=== PATIENT | female | born 1990 | race Caucasian/White ===

== ENCOUNTER → 2021-04-27 | Outpatient (CLI) | payer OTHER ==
[~2021-04-27] MED LIST: ACYC800 PO; AMOX500 PO; AMOX50SU PO; BIRTH CONTROL PILL; CIPR500 PO; CLON2 PO; CODGUAEL PO; ESCI10; HYDACE5 PO; ONDA4 PO; PENVK500 PO; PROM25 PO; RXCODACESY PO; RXONDA4ODT MM; SERT50; TOPAMAX 200 MG; TRAM50 PO; [UNRECOGNIZED DRUG - REMARK]; [UNRECOGNIZED DRUG - REMARK] PO; [UNRECOGNIZED DRUG - REMARK] PO
[2021-04-30 11:10] LABS: HPV 16 Negative (Negative); HPV 18 Negative (Negative); HPV OTHER HR TYPES Positive (Negative)
== END ==
LOC: LAB SHORT 15:20 → LAB 15:20
PROVIDERS: Registered Nurse Community Health
DX: Z12.4 Encounter for screening for malignant neoplasm of cervix (principal)
CPT/HCPCS: 87624; G0123

== ENCOUNTER → 2021-05-31 | Outpatient (CLI) | payer OTHER | LOC: LAB 13:24 → LAB SHORT 13:24 | DX: N87.9 Dysplasia of cervix uteri, unspecified (principal) | CPT/HCPCS: 88305; 88342 ==

== ENCOUNTER 2021-06-23 08:15 | Day surgery (SDC) | payer OTHER ==
[~2021-06-23] VITALS: Ht 167.6 cm; Wt 67.0 kg
== END 2021-06-23 11:50 | disposition home or self-care (01) ==
LOC: ORSCSDS 08:15
PROVIDERS: Obstetrics & Gynecology
PROC: 0UBC7ZX Excision of Cervix, Via Natural or Artificial Opening, Diagnostic (ICD-10-PCS; principal; 2021-06-23 10:00)
DX: D06.0 Carcinoma in situ of endocervix (principal); F17.210 Nicotine dependence, cigarettes, uncomplicated; F32.9 Major depressive disorder, single episode, unspecified
CPT/HCPCS: 88305; J0171; J1100; J1885; J2405; J2704; J3010; J7120

== ENCOUNTER → 2021-09-13 | Outpatient (CLI) | payer OTHER ==
[2021-09-13 10:31] LABS: BASOPHILS ABSOLUTE AUTO 0.04 K/mm3 (0.00-0.23); BASOPHILS PERCENT AUTO 0 % (0-2); EOSINOPHILS ABSOLUTE AUTO 0.06 K/mm3 (0.00-0.68); EOSINOPHILS PERCENT AUTO 1 % (0-6); Hematocrit 42.8 % (33.0-51.0); Hemoglobin 14.7 g/dL (11.5-16.0); IMMATURE GRAN ABSOLUTE AUTO 0.05 K/mm3 (0.00-0.10); IMMATURE GRAN PERCENT AUTO 0 % (0-1); LYMPHOCYTES ABSOLUTE AUTO 2.16 K/mm3 (0.84-5.20); LYMPHOCYTES PERCENT AUTO 19 % (21-46); MONOCYTES ABSOLUTE AUTO 0.57 K/mm3 (0.16-1.47); MONOCYTES PERCENT AUTO 5 % (4-13); Mean Corpuscular HGB 30.4 pg (26.0-34.0); Mean Corpuscular HGB Conc 34.3 g/dL (31.5-36.5); Mean Corpuscular Volume 89 fL (80-100); NEUTROPHILS ABSOLUTE AUTO 8.41 K/mm3 (1.96-9.15); NEUTROPHILS PERCENT AUTO 75 % (41-73); Platelet Count 262 K/mm3 (150-400); RDW Coefficient Variation 12.4 % (11.7-14.2); RDW Standard Deviation 40.2 fL (35.1-46.3); Red Blood Cell Count 4.83 M/mm3 (3.80-5.20); White Blood Cell Count 11.29 K/mm3 (4.00-11.30)
[2021-09-13 10:49] LABS: Alanine Aminotransfer (ALT/SGP 37 U/L (12-78); Albumin, Blood 4.2 g/dL (3.4-5.0); Albumin/Globulin Ratio 1.1 (0.8-1.8); Alk Phos 84 U/L (40-126); Anion Gap 10 mmol/L (6-16); Aspartate Aminotrans (AST/SGOT 26 U/L (12-37); Blood Urea Nitrogen 8 mg/dL (8-24); Bun/Creatinine Ratio 10.1 (12.0-20.0); CO2, Blood 26 mmol/L (21-32); Calcium, Blood 8.7 mg/dL (8.5-10.1); Chloride, Blood 100 mmol/L (98-108); Creatinine, Blood 0.79 mg/dL (0.40-1.00); Free Thyroxine 1.23 ng/dL (0.70-1.60); Globulin, Blood 3.7 g/dL (2.2-4.0); Glomerular Filtration Rate >60 (60-); Glucose, Blood 79 mg/dL (70-99); Potassium, Blood 4.4 mmol/L (3.5-5.5); Sodium, Blood 136 mmol/L (136-145); Thyroid Stimulating Hormone 0.911 uIU/mL (0.360-4.800); Total Protein, Blood 7.9 g/dL (6.4-8.2)
== END | disposition home or self-care (01) ==
LOC: LAB SHORT 10:26 → LAB 10:26
PROVIDERS: Family Medicine
DX: E04.9 Nontoxic goiter, unspecified (principal); N20.9 Urinary calculus, unspecified
CPT/HCPCS: 80053; 84439; 84443; 85025; 87086

== ENCOUNTER → 2021-11-10 | Outpatient (CLI) | payer OTHER | LOC: LAB SHORT 18:58 | DX: B37.2 Candidiasis of skin and nail (principal); R63.1 Polydipsia; Z83.3 Family history of diabetes mellitus | CPT/HCPCS: 83036 ==

== ENCOUNTER → 2024-09-05 | Outpatient (CLI) | payer OTHER ==
[~2024-09-05] MED LIST changes: +ACET325; +DOCU100 PO; +IBUP200
[2024-09-06 07:42] LABS: Candida Group, PCR NOT DETECTED (NOT DETECT); Candida glabrata-krusei, PCR NOT DETECTED (NOT DETECT)
[2024-09-06 07:56] LABS: Bacterial Vaginosis PCR Positive (NEGATIVE)
== END ==
LOC: LAB 18:03 → LAB SHORT 18:03
PROVIDERS: Obstetrics & Gynecology
DX: N89.8 Other specified noninflammatory disorders of vagina (principal)
CPT/HCPCS: 87481; 87661; 87801

== ENCOUNTER 2024-11-08 06:07 | Day surgery (SDC) | payer OTHER ==
[2024-11-08] VITALS (10 sets, daily range): BP systolic 116–147; BP diastolic 80–88
[~2024-11-08] VITALS: Ht 167.6 cm; Wt 80.9 kg
[~2024-11-08 06:07] MED LIST changes: +Cyclobenzaprine5 MG PO; +NIFEDIPINE; +Venlafaxine HC150 MG PO
[2024-11-08] MEDS ORDERED: Lactated Ringer's 1,000 ML IV SCH (06:20)
[2024-11-08] MEDS ORDERED: Ampicillin Sod/Sulbactam Sod 3 GM in NS 100 ML IV SCH (06:20)
--- NOTE | 2024-11-08 06:41 | NUR ---
AMBULATORY INTO [facility]. HISTORY AND ALLERGIES REVIEWED. LUNGS CLEAR. NPO STATUS CONFIRMED. PT MOTHER GAYE IS HER RIDE HOME TODAY.BELONGINGS GIVEN TO PT MOM.
[2024-11-08] MEDS ORDERED: propofoL 20 ML IV ONE (06:51)
[2024-11-08] MEDS ORDERED: Ampicillin Sod/Sulbactam Sod 3 GM ONE (06:52)
[2024-11-08] MEDS ORDERED: Bupivacaine 0.5% HCl 5 MG/ML 30MLVIAL ONE (07:17)
[2024-11-08] MEDS ORDERED: Midazolam HCl 1MG / ML 2ML Vial IV ONE (07:25)
[2024-11-08] MEDS ORDERED: FentaNYL Citrate 50 MCG/ML 2 ML Injection ONE ×2 (07:32→08:00)
[2024-11-08] MEDS ORDERED: Ketorolac Tromethamine 30mg Vial ONE (07:46)
[2024-11-08] MEDS ORDERED: Ondansetron HCl 2 MG / ML 2ML Vial ONE (07:46)
[2024-11-08] MEDS ORDERED: Dexamethasone Sod Phos 10 MG/ML 1ML VIAL ONE (07:46)
[2024-11-08] MEDS ORDERED: Lidocaine 1%-Epineph 1:100000 20 ML MDV INJ ONE (07:55)
[2024-11-08] MEDS ORDERED: Triple Antibiotic Ointment 30 gm ONE (08:02)
[2024-11-08] MEDS ORDERED: OxyCODONE 5 mg/Acetamin 325 mg TABLET PO PRN (08:35)
--- NOTE | 2024-11-08 09:56 | NUR ---
Patient up to Ambulate independently. Gait steady. Discharge instructions reviewed with patient. Patient verbalizes understanding. Copy given to patient to take home. Patient States Post-Procedure ride home has been arranged. Discharged via wheelchair to private car for ride home. PT REPORTS "PRESSURE" GETTING BETTER. REPORTS READY TO GO HOME. DISCUSSED HR WITH DR LOYOLA AND ANESTHESIA WHO REPORTS PT MAY GO HOME. PT SENT WITH EXTRA SUPPLIES, REPORTS HAVING [facility] AT HOME ALREADY BEEN USING IT.
== END 2024-11-08 09:56 | disposition home or self-care (01) ==
LOC: ORSCMMR 06:07 → ORD 07:30 → ORSCMMR 07:30
PROVIDERS: Surgery
PROC: 06BY0ZC Excision of Hemorrhoidal Plexus, Open Approach (ICD-10-PCS; principal; 2024-11-08 07:30)
PROC: 0H89XZZ Division of Perineum Skin, External Approach (ICD-10-PCS; principal; 2024-11-08 07:30)
DX: K64.1 Second degree hemorrhoids (principal); K60.0 Acute anal fissure; K92.1 Melena; F17.210 Nicotine dependence, cigarettes, uncomplicated; Z79.899 Other long term (current) drug therapy
CPT/HCPCS: 88304; A9270; J0295; J1100; J1885; J2250; J2405; J2704; J3010; J7120